=== PATIENT | female | born 1985 | race Caucasian/White ===

== ENCOUNTER 2017-11-19 14:18 | Inpatient (IN) | payer OTHER ==
--- NOTE | 2017-11-19 09:47 | PDOC.LDHP ---
Labor and Delivery H&P Chief complaint: scheduled induction, other HPI: 32 yo @ 37w2d by 9 week CRL who presents for IOL due to uncontrolled A2DM, on metformin 500 mg BID and glyburide 5 mg QAM and 7.5 mg QHS. EFW 89.9% (3343 g ) on 11/11/17. Current gestational age (weeks): 37 Due date: 12/08/17 Grav: 2 Para: 1 OB History Details: 2004- term 9 lbs (no complications) Abnormal US findings: No (CP cyst seen early, MFM sono with resolution ) Past Medical History: Denies Current medications: pre-annamarie vitamins, other (gluburide metformin) Previous surgical history: other (right elbow surgery) Allergies/Adverse Reactions: Allergies Allergy/AdvReac Type Severity Reaction Status Date / Time No Known Allergies Allergy Verified 11/19/17 18:38 Social history: none - Physical Exam Vital signs reviewed and normal: yes General: NAD Heart: RRR Lungs: nonlabored breathing Abdomen: gravid Extremeties: no edema FHT: category 1 (130s, mod gabo, + accels, no decels) - Vaginal Exam cm dilated: 2 (Cook balloon placed 60/50 cc; cephalic) Effacement: 25% Station: -3 - OB Labs Blood type: O RH: positive Antibody Screen: negative HIV: negative RPR: negative HEPSAg: negative 1 hour GCT: positive 3 hour GTT: positive GBS: positive Urine drug screen: not done Rubella: immune - Assessment 37w2d IUP A2DM, uncontrolled Possible LGA GBS+ - Plan Plan: admit to L&D, cervical ripening, GBS antibiotic prophylaxis, informed consent obtained, anesthesia consult for pain management
[2017-11-19] MEDS ORDERED: Methylergonovine 0.2 MG/ML VIAL IM PRN ×2 (18:18)
[2017-11-19] MEDS ORDERED: Dinoprostone 10 MG Suppository VAG SCH (18:18)
[2017-11-19] MEDS ORDERED: Diphenoxylate HCl/Atropine Tablet PO PRN (18:18)
[2017-11-19] MEDS ORDERED: Ondansetron HCl/PF 4 MG/2 ML Vial IVP PRN (18:18)
[2017-11-19] MEDS ORDERED: Misoprostol 200 MCG TAB PR PRN (18:18)
[2017-11-19] MEDS ORDERED: Ibuprofen 800 MG TAB PO PRN (18:18)
[2017-11-19] MEDS ORDERED: Acetaminophen 500 MG TAB PO PRN (18:18)
[2017-11-19] MEDS ORDERED: Promethazine HCl 25 MG/ML VIAL IM PRN (18:18)
[2017-11-19] MEDS ORDERED: Penicillin G Potassium 5 MILL.UNITS in Sodium Chloride 0.9% 100 ML IVPB SCH (18:18)
[2017-11-19] MEDS ORDERED: Lidocaine 1% (PF) 30 ML VIAL SC PRN (18:18)
[2017-11-19] MEDS ORDERED: Carboprost 250 MCG/ML AMP IM PRN (18:18)
[2017-11-19] MEDS ORDERED: Insulin Regular 300 UNITS/3 ML VIAL SC PRN (18:18)
[2017-11-19 18:44] VITALS: BMI 34.8
[2017-11-19] MEDS: Lactated Ringer's 1,000 ML IV SCH (19:20)
[2017-11-19 19:52] LABS: Hemoglobin 12.6 g/dL (12.0-16.0); Mean Corpuscular HGB CONC 33.9 g/dL (32.0-36.0); Mean Corpuscular Hemoglobin 27.4 pg (27.0-31.0); Mean Corpuscular Volume 80.8 fl (81.0-99.0); Mean Platelet Volume 9.2 fL (7.4-10.4); Platelet Count 161 thou/uL (130-400); RBC Distribution Width 13.6 % (11.5-14.5); Red Blood Cell (RBC) Count 4.59 mill/uL (4.20-5.40); White Blood Cell (WBC) Count 7.6 thou/uL (4.8-10.8)
[2017-11-19 20:30] LABS: HBSAg Index 0.19 S/CO (0-0.99); HIV (1/2) Antibody/Antigen Non-Reactive (NonReactive); HIV 1/2 INDEX 0.13 S/CO (<1.00); Hep B Surf Ag Non-Reactive S/CO (NonReactive)
[2017-11-19 20:31] LABS: Syphilis Antibody Nonreactive (Nonreactive); Syphilis Antibody Index 0.06 S/CO (<1.00 Non-Reactive)
[2017-11-20] MEDS: Penicillin G 2.5 MILL.units 2.5 MILL.UNITS in Premix Bag 1 BAG IVPB SCH ×6 (01:49→22:24)
[2017-11-20] MEDS: Lactated Ringer's 1,000 ML IV SCH ×4 (04:10→22:25)
[2017-11-20] MEDS ORDERED: DISCONTINUE ALL PREVIOUS NARCOTICS FS SCH (12:30)
[2017-11-20] MEDS: Bupivacaine 0.5% 20 ML, fentaNYL Citrate/PF 400 MCG in Sodium Chloride 0.9% 72 ML EPIDURAL SCH ×2 (13:39→20:58)
[2017-11-20] MEDS ORDERED: LR 500 ML/Oxytocin 10 units 500 ML ONE (16:10)
[2017-11-20] MEDS ORDERED: LR 500 ML/Oxytocin 10 units 500 ML IVPB SCH (16:30)
[2017-11-20] MEDS ORDERED: Lidocaine 2% MPF 10 ML AMP (For Epidural Use) ONE ×2 (18:00)
--- NOTE | 2017-11-21 00:15 | PDOC.OPDEL ---
OB Operative/Delivery Note Delivery Dr/Surgeon: Maru Spear DO Pre-Delivery Diagnosis: medically indicated induction (37 week IUP, A2DM) Procedure/Post Delivery Dx: spontaneous vaginal delivery Weeks gestation: 37 Anesthesia: epidural - Findings A Sex: male - 1 min: 7 - 5 min: 8 - Additional Findings/Plan Placenta delivered: spontaneous Repaired Obstetrical Laceration: 1st degree Estimated blood loss: 200 cc Compilations/Other Findings: Manual rotation of fetus into GERARDO position during 2nd stage due to OP position and minimal advancement with maternal pushing. Delivered in GERARDO position, nuchal x1 No complications with manual rotation or delivery. Post delivery plan: routine recovery
[2017-11-21] MEDS: LR / Pitocin 40 units/1000 ml 1,000 ML IV PRN ×2 (00:25→01:40)
[2017-11-21] MEDS ORDERED: traMADol HCl 50 MG TAB PO PRN (03:15)
[2017-11-21] MEDS ORDERED: Milk Of Magnesia 30 ML UDCUP PO PRN (03:15)
[2017-11-21] MEDS ORDERED: LR / Pitocin 40 units/1000 ml 1,000 ML IV SCH (03:15)
[2017-11-21] MEDS ORDERED: Methylergonovine 0.2 MG/ML VIAL IM PRN ×2 (03:15)
[2017-11-21] MEDS ORDERED: Misoprostol 200 MCG TAB VAG PRN (03:15)
[2017-11-21] MEDS ORDERED: Benzocaine/Menthol 20-0.5% 60 ML CAN TOP PRN (03:15)
[2017-11-21] MEDS ORDERED: Bisacodyl 10 MG SUPP PR PRN (03:15)
[2017-11-21] MEDS ORDERED: Lanolin Ointment 7 GM TUBE TOP PRN (03:15)
[2017-11-21] MEDS: Ibuprofen 800 MG TAB PO SCH ×3 (05:06→21:26)
--- NOTE | 2017-11-21 05:54 | PDOC.PP ---
Post Progress Note Post Day #: 0 to 1 Subjective: Resting well, no complaints PO intake tolerated: yes Flatus: yes Ambulation: yes Vital Signs (12 hours) Temp Pulse Resp BP 11/21/17 05:24 98 F 75 17 115/65 11/21/17 03:15 98.1 F 78 18 110/64 11/20/17 20:00 98.1 F 78 18 Weight Weight 203 lb - Physical Examination Cardiovascular: no m/r/g Respiratory: clear to auscultation bilaterally Abdominal: + bowel sounds, no distention, appropriately TTP Extremities: negative homans (B) Psychiatric: A&Ox3, normal affect Result Diagrams: 11/19/17 19:20 Additional Labs: Post Labs Blood Type O POSITIVE 11/19/17 19:20 Hep Bs Antigen Non-Reactive S/CO (NonReactive) 11/19/17 19:20 (1) Gestational diabetes Code(s): O24.419 - GESTATIONAL DIABETES MELLITUS IN , UNSP CONTROL Status: Acute (2) Vaginal delivery Code(s): O80 - ENCOUNTER FOR FULL-TERM UNCOMPLICATED DELIVERY Status: Acute - Assessment/Plan Patient s/p last pm just prior to midnight (11/20/17 at approx 2350). Doing well. We will likely plan discharge tomorrow 11/22 as delivery was late on the . No new issues at this time.
[2017-11-21 06:00] LABS: Hemoglobin 11.8 g/dL (12.0-16.0); Mean Corpuscular HGB CONC 33.6 g/dL (32.0-36.0); Mean Corpuscular Hemoglobin 27.5 pg (27.0-31.0); Mean Corpuscular Volume 81.7 fl (81.0-99.0); Mean Platelet Volume 8.8 fL (7.4-10.4); Platelet Count 117 thou/uL (130-400); RBC Distribution Width 13.7 % (11.5-14.5); Red Blood Cell (RBC) Count 4.31 mill/uL (4.20-5.40); White Blood Cell (WBC) Count 15.7 thou/uL (4.8-10.8)
[2017-11-21] MEDS: Penicillin G 2.5 MILL.units 2.5 MILL.UNITS in Premix Bag 1 BAG IVPB SCH (08:19)
[2017-11-21] MEDS: Prenatal Vitamin 1 TAB PO SCH (09:20)
[2017-11-21] MEDS: Docusate Calcium (SURFAK) 240 MG CAP PO SCH ×4 (09:21→21:26)
[2017-11-22] MEDS: Ibuprofen 800 MG TAB PO SCH (05:41)
--- NOTE | 2017-11-22 06:27 | PDOC.PP ---
Post Progress Note Post Day #: PPD#2 Subjective: Doing well, ready to go home. PO intake tolerated: yes Ambulation: yes Vital Signs (12 hours) Temp Pulse Resp BP 11/21/17 20:00 98.0 F 75 20 110/58 L Weight Weight 92.079 kg - Physical Examination General: NAD Respiratory: non-labored breathing Psychiatric: A&Ox3, normal affect Result Diagrams: 11/21/17 05:28 Additional Labs: Post Labs Blood Type O POSITIVE 11/19/17 19:20 Hep Bs Antigen Non-Reactive S/CO (NonReactive) 11/19/17 19:20 - Assessment/Plan DC home. Precautions.given. RTC [address] Lara.
[2017-11-22 08:25] VITALS: BP 113/68; TEMP 98.3
[2017-11-22] MEDS: Docusate Calcium (SURFAK) 240 MG CAP PO SCH ×2 (09:27)
[2017-11-22] MEDS: Prenatal Vitamin 1 TAB PO SCH (09:27)
== END 2017-11-22 11:20 | disposition home or self-care (01) | DRG 775 ==
LOC: L&D 18:06 → 3SW 11-21 03:01
PROVIDERS: ADMIT Obstetrics & Gynecology; ATTEND Obstetrics & Gynecology
PROC: 10E0XZZ Delivery of Products of Conception, External Approach (ICD-10-PCS; principal; 2017-11-21)
PROC: 3E0P7VZ Introduction of Hormone into Female Reproductive, Via Natural or Artificial Opening (ICD-10-PCS; 2017-11-21)
PROC: 0HQ9XZZ Repair Perineum Skin, External Approach (ICD-10-PCS; 2017-11-21)
DX: O24.425 Gestational diabetes mellitus in childbirth, controlled by oral hypoglycemic drugs (principal); O36.63X0 Maternal care for excessive fetal growth, third trimester, not applicable or unspecified; O99.824 Streptococcus B carrier state complicating childbirth; O70.0 First degree perineal laceration during delivery; O69.81X0 Labor and delivery complicated by cord around neck, without compression, not applicable or unspecified; Z3A.37 37 weeks gestation of pregnancy; Z37.0 Single live birth
CPT/HCPCS: 36415; 36416; 51701; 51702; 76815; 85027; 86780; 86850; 86900; 86901; 87340; 87389; C1726; J0595; J2001; J2540; J3010; J3490; J7050; J7120